=== PATIENT | male | born 1985 | race Asian ===

== ENCOUNTER 2019-05-03 10:39 | Outpatient (CLI) | payer OTHER ==
[2019-05-03 12:04] LABS: ALBUMIN 4.4 g/dL (3.4-4.8); CALCIUM 8.9 mg/dL (8.4-11.0); CREATININE 0.97 mg/dL (0.55-1.30); POTASSIUM 4.7 mmol/L (3.5-5.1); TOTAL BILIRUBIN 1.1 mg/dL (0.0-1.0)
== END 2019-05-03 20:16 | disposition home or self-care (01) ==
LOC: SLB 10:39
DX: E11.9 Type 2 diabetes mellitus without complications (principal)
CPT/HCPCS: 36415; 80053; 83036